=== PATIENT | male | born 1975 | race Native Hawaiian/Other Pacific Islander ===

== ENCOUNTER 2021-08-31 09:15 | Outpatient (CLI) | payer BC | END 2021-08-31 18:58 | disposition home or self-care (01) | LOC: RAD 09:15 | PROVIDERS: ATTEND Nurse Practitioner Family | DX: R07.9 Chest pain, unspecified (principal) | CPT/HCPCS: 93005 ==

== ENCOUNTER 2021-09-01 08:43 | Outpatient (CLI) | payer BC | END 2021-09-01 20:33 | disposition home or self-care (01) | LOC: LABW 08:43 | PROVIDERS: ATTEND Nurse Practitioner Family | DX: Z00.01 Encounter for general adult medical examination with abnormal findings (principal); R07.9 Chest pain, unspecified; E66.9 Obesity, unspecified; Z13.220 Encounter for screening for lipoid disorders; Z13.1 Encounter for screening for diabetes mellitus | CPT/HCPCS: 36415; 82550; 82553; 84484 ==